=== PATIENT | female | born 2000 | race Caucasian/White ===

== ENCOUNTER 2021-04-24 00:03 | Emergency (ER) | payer OTHER ==
--- NOTE | 2021-04-24 00:35 | NUR ---
CALLED FOR PATIENT NO ANSWER
--- NOTE | 2021-04-24 01:28 | NUR ---
CALLED FOR PATIENT NO ANSWER
--- NOTE | 2021-04-24 01:28 | NUR ---
PATIENT LEFT WITHOUT BEING SEEN BY DR. BOYD. NO FURTHER CARE PROVIDED FOR PATIENT.
== END 2021-04-24 00:35 | disposition left against medical advice (07) ==
LOC: MED 00:03
DX: Z53.21 Procedure and treatment not carried out due to patient leaving prior to being seen by health care provider (principal)

== ENCOUNTER 2022-02-27 08:30 | Inpatient (IN) | payer OTHER ==
[~2022-02-27] VITALS: Ht 149.9 cm; Wt 65.8 kg
[2022-02-27] MEDS ORDERED: ONDANSETRON 4 MG/2 ML VIAL IVP PRN (08:50)
[2022-02-27] MEDS ORDERED: OXYTOCIN 20 UNITS/LR PREMIX 1,000 ML IV ONE (08:50)
[2022-02-27] MEDS ORDERED: LACTATED RINGERS 1,000 ML IV SCH (08:50)
[2022-02-27] MEDS ORDERED: OXYTOCIN 20 UNITS in LACTATED RINGERS 1,000 ML IV SCH (08:50)
[2022-02-27] MEDS ORDERED: MORPHINE SULFATE 5 MG/ML VIAL IVP PRN (08:50)
[2022-02-27 09:05] LABS: BASOPHILS % (AUTO) 0.1 % (0.0-2.0); EOSINOPHILS % (AUTO) 0.2 % (0.0-4.0); HEMOGLOBIN 11.5 g/dL (12.0-16.0); LYMPHOCYTES # (AUTO) 0.9 K/uL (2.5-16.5); LYMPHOCYTES % (AUTO) 11.4 % (20.5-51.1); MEAN CORPUSCULAR HEMOGLOBIN 28 pg (27-31); MEAN CORPUSCULAR HGB CONC 33 g/dL (33-37); MEAN CORPUSCULAR VOLUME 84.3 fL (80-94); MONOCYTES # (AUTO) 0.4 K/uL (0.8-1.0); MONOCYTES % (AUTO) 5.2 % (1.7-9.3); NEUTROPHILS # (AUTO) 6.5 K/uL (1.8-7.7); NEUTROPHILS % (AUTO) 83.1 % (42.2-75.2); PLATELET COUNT (AUTO) 201 K/uL (140-450); RED BLOOD CELL COUNT(AUTO) 4.16 MIL/uL (4.20-5.40); RED CELL DISTRIBUTION WIDTH 14.7 % (11.6-13.7); WHITE BLOOD COUNT (AUTO) 7.8 K/uL (4.8-10.8)
[2022-02-27 10:45] LABS: PROTHROMBIN TIME 9.2 secs (10.8-13.4)
[2022-02-27] MEDS ORDERED: ROPIVACAINE 0.2%/NS PREMIX 200 ML EPI ONE (11:04)
[2022-02-27 11:10] LABS: APPEARANCE,URINE HAZY (CLEAR); BILIRUBIN,URINE NEGATIVE (NEGATIVE); BLOOD, URINE 3+ (NEGATIVE); COLOR,URINE YELLOW (YELLOW); LEUKOCYTE ESTERASE ,URINE 1+ (NEGATIVE); NITRITE, URINE NEGATIVE (NEGATIVE); PH,URINE 6.5 (5.0-9.0); UGLUCOSE NEGATIVE (NEGATIVE)
[2022-02-27 12:22] LABS: RBC,URINE 20-50 /HPF (0-5)
[2022-02-27 12:23] LABS: WBC,URINE 0-5 /HPF (0-5)
[2022-02-27 12:33] LABS: BARBITURATE, URINE NEGATIVE ng/ml (NEG <=200); BENZODIAZEPINE, URINE NEGATIVE ng/mL (NEG <=200); CANNABINOID, URINE NEGATIVE ng/mL (NEG <=50); COCAINE, URINE NEGATIVE ng/mL (NEG <=300); OPIATE, URINE POSITIVE ng/mL (NEG <=2000); PHENCYCLIDINE SCREEN,URINE NEGATIVE ng/mL (NEG <=25)
[2022-02-27 12:59] LABS: ALBUMIN 2.7 g/dL (3.4-5.0); ANION GAP 14.8 (8-16); CARBON DIOXIDE 22.5 mmol/L (21-32); CREATININE 0.5 mg/dL (0.6-1.3); POTASSIUM 3.3 mmol/L (3.5-5.1); TOTAL BILIRUBIN 0.2 mg/dL (0.0-1.0)
[2022-02-27] MEDS ORDERED: LIDOCAINE 1% 500 MG/50 ML VIAL ONE (14:28)
[2022-02-27] MEDS ORDERED: oxyCODONE/APAP 5/325 MG 1 TAB TAB PO PRN (15:55)
[2022-02-27] MEDS ORDERED: TEMAZEPAM 15 MG CAP PO PRN (15:55)
[2022-02-27] MEDS ORDERED: METHYLERGONOVINE 0.2 MG TAB PO PRN (15:55)
[2022-02-27] MEDS ORDERED: IBUPROFEN 800 MG TAB PO PRN (15:55)
[2022-02-27] MEDS ORDERED: HYDROcodone/APAP 5/325 MG 1 TAB TAB PO PRN (15:55)
[2022-02-27] MEDS ORDERED: METHYLERGONOVINE 0.2 MG/ML AMP IM PRN (15:55)
[2022-02-27] MEDS ORDERED: SODIUM PHOSPHATE 118 ML ENEM RC PRN (15:55)
[2022-02-27] MEDS ORDERED: MEASLES, MUMPS, AND RUBELLA 1 VIAL SQVAC ONE (15:55)
[2022-02-27] MEDS ORDERED: BENZOCAINE/MENTHOL 20%-0.5% 60 GM CAN TP PRN (15:55)
[2022-02-27] MEDS ORDERED: MEASLES, MUMPS, AND RUBELLA 1 VIAL SQVAC PRN (16:10)
[2022-02-27] MEDS ORDERED: DOCUSATE SOD/SENNA 50/8.6 MG 1 TAB PO SCH (21:00)
[2022-02-28 08:33] LABS: HEMATOCRIT 29.3 % (36-48); HEMOGLOBIN 9.8 g/dL (12.0-16.0)
--- NOTE | 2022-02-28 10:32 | NUR ---
PATIENT HAS BEEN SCREENED AND CATEGORIZED LOW NUTRITION RISK. PATIENT WILL BE SEEN WITHIN 7 DAYS OF ADMISSION. 03/06/[address]
[2022-02-28] MEDS ORDERED: IBUP-2217 PO (18:03)
== END 2022-03-01 15:10 | disposition home or self-care (01) | DRG 560 ==
LOC: MFCC 08:30
PROVIDERS: ADMIT Obstetrics & Gynecology; ATTEND Obstetrics & Gynecology
PROC: 10D07Z6 Extraction of Products of Conception, Vacuum, Via Natural or Artificial Opening (ICD-10-PCS; principal; 2022-02-27)
PROC: 10907ZC Drainage of Amniotic Fluid, Therapeutic from Products of Conception, Via Natural or Artificial Opening (ICD-10-PCS; 2022-02-27)
PROC: 3E0R3BZ Introduction of Anesthetic Agent into Spinal Canal, Percutaneous Approach (ICD-10-PCS; 2022-02-27)
PROC: 00HU33Z Insertion of Infusion Device into Spinal Canal, Percutaneous Approach (ICD-10-PCS; 2022-02-27)
PROC: 3E0234Z Introduction of Serum, Toxoid and Vaccine into Muscle, Percutaneous Approach (ICD-10-PCS; 2022-02-27)
DX: O80 Encounter for full-term uncomplicated delivery (principal); Z37.0 Single live birth; D62 Acute posthemorrhagic anemia; Z20.822 Contact with and (suspected) exposure to COVID-19; Z3A.39 39 weeks gestation of pregnancy
CPT/HCPCS: 36415; 51702; 80053; 80305; 81001; 85018; 85025; 85610; 85730; 86592; 86886; 86900; 86901; 87086; J2001; J2590; J2795; J7120